=== PATIENT | male | born 1930 | race Caucasian/White ===

== ENCOUNTER 2018-11-13 11:50 | Inpatient (IN) | payer MEDICARE, MEDICAID ==
[~2018-11-13] VITALS: Ht 182.9 cm; Wt 97.2 kg
--- NOTE | ~2018-11-13 | EKG ---
[place], [place] ELECTROCARDIOGRAM REPORT NAME: ROBERTO ABRAMS UNIT #: [id number] ROOM: 419 DOCTOR: MCKENZIE DRAFT REPORT BIRTHDATE: [birth year] [facility] Test Date: 2018-11-13 Test Time: 12:25:43 Pat Name: ROBERTO ABRAMS Department: Room: 419 Gender: M [employer]: : 1930 Requested By: LINCOLN HARGROVE Order Number: [id number] Reading MD: Stevie Chow MD Measurements Intervals [place] Rate: 80 P: AK: QRS: -74 QRSD: 138 T: 31 QT: 423 QTc: 488 Interpretive Statements Atrial fibrillation RBBB and LAFB Compared to ECG 08/25/2018 14:16:26 Left anterior fascicular block now present Sinus rhythm no longer present Electronically Signed On 11-14-2018 4:15:31 PST by Stevie Chow MD CM:EKGRPT:ELECTROCARDIOGRAM REPORT [id number] LINCOLN SANTIZO DRAFT REPORT LINCOLN HARGROVE DO
[~2018-11-13 11:50] MED LIST: BACTRIM DS 8001 TA1 PO; FLOMAX0.4 MG PO; K-TAB20 MEQ PO; LASIX40 MG PO
[2018-11-13 12:00] VITALS: BP 115/67
[2018-11-13 12:59] LABS: HEMATOCRIT 45.1 % (42.0-52.0); HEMOGLOBIN 14.2 g/dl (14.0-18.0); MEAN CELL VOLUME 95.1 fl (80.0-94.0); MEAN CORPUSCULAR HGB CONC 31.5 g/dl (33.0-37.0); MEAN PLATELET VOLUME 8.2 fl (9.6-12.3); PLATELET COUNT AUTOMATED 352 10*3/uL (130-400); RED BLOOD COUNT 4.74 10*6/uL (4.50-5.90); RED CELL DISTRI WIDTH 13.7 % (0-14.5); WHITE BLOOD COUNT 15.6 10*3/uL (4.8-10.8)
[2018-11-13 13:13] LABS: ALBUMIN 3.1 gm/dl (3.1-4.5); ALKALINE PHOSPHATASE 96 U/L (45-117); BUN 20 mg/dl (7-24); CHLORIDE 104 mmol/L (98-107); CREATININE 0.85 mg/dL (0.70-1.30); SGOT/AST 112 IU/L (3-35); SGPT/ALT 42 U/L (12-78); SODIUM 139 mmol/L (136-145); TOTAL PROTEIN 8.9 gm/dL (6.4-8.2)
[2018-11-13 13:25] LABS: BURR CELLS FEW; PLATELET SUFFICIENCY NORMAL (NORMAL); TOTAL CELLS COUNTED 100 #CELLS
[2018-11-13 13:26] LABS: POLYCHROMASIA SLIGHT
[2018-11-13 13:35] VITALS: BP 113/78
[2018-11-13 13:39] LABS: CPK 2084 U/L (39-308); TROPONIN I < 0.015 ng/ml (<0.045)
--- NOTE | 2018-11-13 15:11 | NUR ---
RECEIVED REPORT FROM ROBBY HERNANDEZ
--- NOTE | 2018-11-13 15:27 | NUR ---
physician at bedside.
--- NOTE | 2018-11-13 15:33 | NUR ---
attempted to call filomena byrne to being patient upstairs. no answer.
--- NOTE | 2018-11-13 15:36 | NUR ---
HENRIETTA HERNANDEZ RETURNED CALL. URGENT MATTER UPSTAIRS. WILL TAKE PATIENT UP IN 15 MINUTES.
[2018-11-13 16:00] VITALS: BP 152/74
--- NOTE | 2018-11-13 16:05 | NUR ---
A 88, admitted to , under the services of JAMEEL Barry DO with a diagnosis of RHABDOMYOLYSIS, FREQUENT FALLS. Chief complaint is GENERALZED WEAKNESS, FALLS. Patient arrived via bed from ER. Monitor applied. Initial assessment completed. Vital signs taken and recorded. JAMEEL BARRY DO notified of admission to the unit. Orders received. See assessment for past medical history, medications and allergies. Patient and/or family oriented to unit. Clothing/patient valuable form completed. HENRIETTA VILLA
[2018-11-13 16:37] LABS: BILIRUBIN 1+ (NEGATIVE); BLOOD 2+ (NEGATIVE); CLARITY SL CLOUDY (CLEAR); GLUCOSE NEGATIVE (NEGATIVE); KETONE 3+ (NEGATIVE); LEUKO ESTERASE NEGATIVE (NEGATIVE); NITRITE NEGATIVE (NEGATIVE); SPECIFIC GRAVITY >= 1.030 (1.005-1.030); UROBILINOGEN 0.2 E.U./dl (0.2-1.0)
[2018-11-13 16:39] LABS: COLOR YELLOW (YELLOW)
[2018-11-13 16:54] LABS: BACTERIA 2+; MUCOUS 2+
--- NOTE | 2018-11-13 17:22 | NUR ---
PHYSICAL THERAPY Moderate level complexity eval done at bedside later afternoon. [id number] based on acuity level, weakness, tests, chart review. Please see eval for status, goals, POC. Kiley Huerta, PT
--- NOTE | 2018-11-13 17:23 | NUR ---
PODIATRY AWARE OF CONSULT PRESENT AND IN PATIENTS ROOM.
--- NOTE | 2018-11-13 17:32 | NUR ---
INFORMED OF PATIENT NOT HAVING HOME MEDICATION AND DOESN'T GO TO PCP ARE TO PHARMACY. INFORMED OF EXTENSIVE WOUNDS AND AWAITING ORDERS.
--- NOTE | 2018-11-13 18:45 | NUR ---
DRESSING CHANGES COMLPETED TO RLE PER PODIATRY'S ORDERS. PATIENT TOLERATED PROCEDURE WELL.
--- NOTE | 2018-11-13 19:02 | NUR ---
TERRELL SPRINGER NOTIFIED OF ARTIAL U/S RESULTS.
[2018-11-13 20:00] VITALS: BP 146/73
--- NOTE | 2018-11-13 20:45 | NUR ---
24 HR chart check completed.
--- NOTE | 2018-11-13 22:00 | NUR ---
RESTING IN BED WITH NO ACUTE DISTRESS NOTED. RESPIRATIONS EASY. LUNGS DIMINISHED, CLEAR. PULSE OX 94% RA. +2 BLE EDEMA. DRESSING DRY AND INTACT RLE. BILATERAL TUBI-STONER OUT IN PLACE. IV FLUIDS INFUSING PER ORDER. CALL LIGHT WITHIN REACH. NO VOICED COMPLAINTS. BED ALARM MAINTAINED FOR SAFETY
[2018-11-14] VITALS: BP 143/73
--- NOTE | 2018-11-14 00:14 | NUR ---
PATIENT C/O DIFFICULTY VOIDING. BLADDER DISTENDED. BLADDER SCANNED FOR >[address] TEJADA CONTACTED AND INFORMED, ORDERS RECEIVED TO STRAIGHT CATH
--- NOTE | 2018-11-14 00:30 | NUR ---
STRAIGHT CATH PERFORMED. PATIENT TOLERATED WELL. SOME RESISTANCE MEET WHEN ADVANCING CATH. 1050 CC BLOOD TINGED URINE NOTED. PATIENT VOICED FEELING OF RELIEF ONCE BLADDER EMPTIED.
--- NOTE | 2018-11-14 00:45 | NUR ---
RESTING IN BED. RESPIRATIONS EASY. VSS. IV FLUIDS MAINTAINED. CALL LIGHT WITHIN REACH. NO VFURTHER VOICED COMPLAINTS. BED ALARM MAINTAINED FOR SAFETY
--- NOTE | 2018-11-14 01:00 | NUR ---
PATIENT OVERHEARD LOUDLY CONVERSING WITH SELF. CHECKED ON PATIENT, NO VOICED COMPLAINTS. CALL LIGHT WITHIN REACH
--- NOTE | 2018-11-14 03:30 | NUR ---
WOUND CARE CRYSTAL PRESENT ON FLOOR. INFORMED OF WOUNDS WITH NO ORDERS FOR WOUND CARE. PATIENT CURRENTLY SLEEPING
[2018-11-14 05:30] LABS: MEAN CORPUSCULAR HGB 29.9 pg (27.0-31.0); MEAN CORPUSCULAR HGB CONC 31.4 g/dl (33.0-37.0); MEAN PLATELET VOLUME 8.6 fl (9.6-12.3); PLATELET COUNT AUTOMATED 321 10*3/uL (130-400); RED BLOOD COUNT 4.02 10*6/uL (4.50-5.90); RED CELL DISTRI WIDTH 13.7 % (0-14.5); WHITE BLOOD COUNT 15.2 10*3/uL (4.8-10.8)
[2018-11-14 05:34] LABS: ALBUMIN 2.4 gm/dl (3.1-4.5); ALKALINE PHOSPHATASE 72 U/L (45-117); BUN 19 mg/dl (7-24); CHLORIDE 109 mmol/L (98-107); CREATININE 0.78 mg/dL (0.70-1.30); PHOSPHOROUS 2.3 mg/dL (2.5-4.9); POTASSIUM 3.7 mmol/L (3.5-5.1); SGOT/AST 96 IU/L (3-35); SGPT/ALT 37 U/L (12-78); SODIUM 141 mmol/L (136-145)
[2018-11-14 05:50] LABS: CPK 1271 U/L (39-308); HEMATOCRIT 38.2 % (42.0-52.0)
--- NOTE | 2018-11-14 06:00 | NUR ---
sleeping. respirations easy. iv fluids maintained. call light within reach. bed alarm maintained for safety
[2018-11-14 06:40] LABS: BASOPHILS 1 % (0-1); PLATELET SUFFICIENCY NORMAL (NORMAL); TOTAL CELLS COUNTED 100 #CELLS
--- NOTE | 2018-11-14 06:45 | NUR ---
crystal present on floor to attempt to assess patient and wounds. patient sleeping soundly, unable to arouse. will attempt at later time
[2018-11-14 07:07] LABS: VITAMIN D, 25-HYDROXY 12.3 ng/mL (30-100)
[2018-11-14 08:00] VITALS: BP 124/60; BP 126/74
--- NOTE | 2018-11-14 08:45 | NUR ---
WOUND CARE NURSE IN TO ASSESS, MEASURE, AND STAGE MULTIPLE WOUNDS TO BOTH LEGS AND SACRUM. SEE WOUND CARE CONSULT NOTE AND WOUND ASSESSMENT FLOW SCREENS FOR DETAILS. DRESSINGS TO BE REAPPLIED AFTER PATIENT RETURNS FROM VENOUS ULTASOUND STUDIES THIS MORNING.
--- NOTE | 2018-11-14 08:53 | NUR ---
ROBERTO ABRAMS [id number] Please refer to the physician's history and physical for past medical history, comorbid conditions, and allergies. Diagnosis: RHABDOMYOLYSIS FREQUENT FALLS Tank Score: 15,AT RISK WOUND DESCRIPTIONS: Location of the wound: right anterior proximal lower extremity Thickness: Full Size: 1.8cm x 0.6cm x <0.1cm Tunneling: none Undermining: none Sinus Tract: none Presence of Exudate: none Amount: None Color: Purple, red Odor: None Periwound Skin Appearance: Normal Wound edges: closed Pain (associated with wound): none at time of assessment How does patient state this happened? pt stated he fell on tuesday and was down for several hours Location of the wound: right anterior distal lower extremity Thickness: Full Size: 3.3cm x 1.1cm x <0.1cm Tunneling: none Undermining: none Sinus Tract: none Presence of Exudate: Serosanguineous Amount: Moderate Color: Yellow, red Odor: None Periwound Skin Appearance: Erythema Wound edges: approximated Pain (associated with wound): none at time of assessment How does patient state this happened? pt stated he fell on tuesday and was down for several hours Location of the wound: right posterior distal lower extremity Thickness: Full Size: 5.5cm x 6.7cm x <0.1cm Tunneling: none Undermining: none Sinus Tract: none Presence of Exudate: Serosanguineous Amount: Moderate Color: Yellow, red, brown Odor: None Periwound Skin Appearance: Erythema Wound edges: approximated Pain (associated with wound): none at time of assessment How does patient state this happened? pt stated he fell on tuesday and was down for several hours Location of the wound: right great toe Type: Laceration Size: 3.0cm x 3.5cm x <0.1cm Tunneling: none Undermining: none Sinus Tract: none Presence of Exudate: Serosanguineous Amount: Moderate Color: red, purple Odor: None Periwound Skin Appearance: Erythema, warmth Wound edges: approximated with 4 sutures Pain (associated with wound): none at time of assessment How does patient state this happened? pt stated he fell on tuesday and was down for several hours Location of the wound: left knee lateral Thickness: Full Size: 2.7cm x 2.2cm x <0.1cm Tunneling: none Undermining: none Sinus Tract: none Presence of Exudate: none Amount: none Color: red, yellow Odor: None Periwound Skin Appearance: Erythema Wound edges: approximated Pain (associated with wound): none at time of assessment How does patient state this happened? pt stated he fell on tuesday and was down for several hours Location of the wound: left knee medial Thickness: Full Size: 0.7cm x 1.2cm x <0.1cm Tunneling: none Undermining: none Sinus Tract: none Presence of Exudate: none Amount: none Color: red, yellow Odor: None Periwound Skin Appearance: Erythema Wound edges: approximated Pain (associated with wound): none at time of assessment How does patient state this happened? pt stated he fell on tuesday and was down for several hours Location of the wound: left lateral lower extremity proximal Thickness: Full Size: 0.4cm x 0.3cm x <0.1cm Tunneling: none Undermining: none Sinus Tract: none Presence of Exudate: none Amount: none Color: red, yellow, brown Odor: None Periwound Skin Appearance: Erythema Wound edges: approximated Pain (associated with wound): none at time of assessment How does patient state this happened? pt stated he fell on tuesday and was down for several hours Location of the wound: left lateral lower extremity medial Thickness: Full Size: 1.7cm x 1.2cm x <0.1cm Tunneling: none Undermining: none Sinus Tract: none Presence of Exudate: none Amount: none Color: red, yellow, brown Odor: None Periwound Skin Appearance: Erythema Wound edges: approximated Pain (associated with wound): none at time of assessment How does patient state this happened? pt stated he fell on tuesday and was down for several hours Location of the wound: left lateral lower extremity distal Thickness: Full Size: 1.4cm x 0.7cm x <0.1cm Tunneling: none Undermining: none Sinus Tract: none Presence of Exudate: none Amount: none Color: red, yellow, brown Odor: None Periwound Skin Appearance: Erythema Wound edges: approximated Pain (associated with wound): none at time of assessment How does patient state this happened? pt stated he fell on tuesday and was down for several hours Location of the wound: sacrum Type of wound: stage 3 Thickness: Full Size: 2.5cm x 2.3cm x <0.1cm Tunneling: none Undermining: none Sinus Tract: none Presence of Exudate: Serosanguineous Amount: Light Color: Yellow, brown, red Odor: None Periwound Skin Appearance: Erythema Wound edges: approximated Pain (associated with wound): tender to touch How does patient state this happened? pt stated he has been treating this at home for sometime and its getting better Patients bilateral extremities are dry and flaky. Pedal pulse are palpalable. Bilateral lower extremities are warm to touch. Surface the patient is resting on: Isoflex SKIN PREVENTION RECOMMENDATION: 1. Pressure redistribution support surface as appropriate 2. Elevate heels 3. Remove boots/TEDS every shift and reapply 4. Head of bed 30 degrees as tolerated 5. Assess nutrition and hydration 6. Manage moisture 7. Avoid the use of containment devices while in bed 8. Use absorptive products on surfaces limit layers of linens on bed 9. Turn and reposition every 1-2 hours in bed and every 1 hour in chair as tolerated 10. Weight shifts every 15 minutes while up in chair 11. Offloading with pillows or device to keep heels elevated off bed 12. Monitor skin at least every shift 13. Inspect under medical devices twice a day WOUND TREATMENT RECOMMENDATIONS: Wheelchair cushion when oob. Heel raiser pro boots while in bed. Stage 3 guidelines: Cleanse sacrum with nss and apply sureprep around the wound therahoney to wound bed and cover with optifoam gentle. Venous and arterial studies. Consult podiatry for possible debridement of bilateral lower extremities if studies suggest and toenail care. Consult Karen Hubbard [facility] for possible debridement of sacrum. Full thickness guidelines: Cleanse left lateral lower extremity distal, left lateral lower extremity medial, left lateral lower extremity proximal, right posterior distal lower extremity, right anterior distal lower extremity with nss and apply sureprep around the wound therahoney to wound bed and cover with 4x4 and wrap with kerlix daily and prn for soiling. Full thickness guidelines: Cleanse left knee medial and left knee lateral with nss and apply sureprep around the wound therahoney to wound bed and cover with optifoam gentle. Continue bactroban dressing to right great toe per podiatry. Continue aquaphor to BLE per podiatry.
--- NOTE | 2018-11-14 09:59 | NUR ---
Dr. Le notified of wound care recommendations.
--- NOTE | 2018-11-14 10:45 | NUR ---
PATIENT BLADDER PER ORDERS FOR QSHIFT. AMOUNT SHOWN 413CC IN BLADDER. ASSISTED PATIENT BY STANDING UP AND THE USE OF URINAL, PATIENT UNABLE TO PRODUCE URIN. PATIENT ASSISTED BACK INTO BED AND STRAIGHT CATH PER ORDERS, 400CC OBTAINED. URINE IS DARK FRANKIE, HEMATURIA, AND STRONGER ODOR.
--- NOTE | 2018-11-14 11:26 | NUR ---
Assistant Professor Of Dietetics in to talk to patient. Patient states lives at home with alone. There are few steps in the home. Physician: none Pharmacy: mail Home health services: none Patient's level of ADLs: MINIMAL ASSIST Patient has working utilities: all working DME: none Follow-up physician's appointment after d/c: will be made by hospitalist nurse director upon discharge Does patient want to access PORTAL?: no Discharge plan discussed with patient, patient lives at home a lone, he states he was doing fine ambulating until his last fall. discussed with him a short term [facility] for rehab prior to going back home, patient was agreeable with this, discussed with him local facilities and he asked that someone call his sister to choose the facility. buffing machine tender will contact patient's sister regarding choice of facilities. case management will follow. ALEJANDRINA VALENTINE
[2018-11-14 12:00] VITALS: BP 118/61
--- NOTE | 2018-11-14 12:43 | NUR ---
Attempted to call patients sister to discuss snf placement and which facility they would prefer. Karrie is at work until 6 PM, her huband stated he will have her call me back either this afternoon or in the morning. Will follow
--- NOTE | 2018-11-14 12:57 | NUR ---
PODIATRY IN TO SEE PATIENT AND EXPRESSED BLOODY DRAINAGE FROM HEMATOMA TO RIGHT GREAT TOE, SMALL AMOUNT OF BLOODY DRAINAGE TO DRESSING NOTED.
--- NOTE | 2018-11-14 13:00 | NUR ---
PATIENT HAVING SCANT BLOODY URINE WHEN ATTEMPTING TO VOID. BLADDER SCANNED FOR >508 ML, PATIENT ASSISTED UP TO RR W/WALKER TO ATTEMPT TO VOID AND ALSO HAVING BOWEL MOVEMENT. WILL STRAIGHT CATHETERIZE ORDERED IF NO OR INADEQUATE RESULT WITH URINATION.
--- NOTE | 2018-11-14 13:30 | NUR ---
PATIENT UNABLE TO VOID, WILL STRAIGHT CATH ORDERED (Q SHIFT)
--- NOTE | 2018-11-14 13:51 | NUR ---
PATIENT STRAIGHT CATHETERIZED FOR 500ML COFFEE-COLORED URINE.
--- NOTE | 2018-11-14 15:17 | NUR ---
PHYSICAL THERAPY Patient declines therapy this afternoon due to being tired and just being up out of bed to the restroom shortly ago. Will check back in the AM. No therapy provided for this reason. MADIE THOMPSON CONTACT CENTER MANAGER
[2018-11-14 16:00] VITALS: BP 123/65
--- NOTE | 2018-11-14 19:15 | NUR ---
BEDSIDE REPORT OBTAINED FROM SUNITHA. PATIENT RESTING IN BED, EYES CLOSED. NO S&S OF DISTRESS NOTED, RESP ARE ERND ON ROOM AIR. BED IS LOCKED IN LOWEST POSITION, BED ALARM MAINTAINED. CALL LIGHT LEFT WITHIN REACH.
[2018-11-14 20:00] VITALS: BP 128/92
--- NOTE | 2018-11-14 22:00 | NUR ---
PATIENT SLEEPING. CALL LIGHT LEFT WITHIN REACH.
--- NOTE | 2018-11-14 22:45 | NUR ---
BLADDER SCAN PERFORMED PER ORDERS, AMOUNT SHOWN 413CC OF URINE. PATIENT ASSISTED TO STAND UP AND TRY TO URINATED IN URINAL BUT WAS UNABLE TO PRODUCE URINE AFTER MULITPLE ATTEMPTS. PATIENT ASSISTED BACK INTO BED. PATIENT STRAIGHT CATH PER ORDER, 400CC OF URINE OBTAINED. URINE WAS DARK FRANKIE/HEMATURIA AND STRONG ODOR. PATIENT STATED HE FELT MUCH BETTER NOW. BED ALARM MAINTAINED AND CALL LIGHT LEFT WITHIN REACH.
[2018-11-15] VITALS: BP 127/65
--- NOTE | 2018-11-15 04:00 | NUR ---
SLEEPING. CALL LIGHT LEFT WITHIN REACH.
--- NOTE | 2018-11-15 04:29 | NUR ---
24 HR chart check completed.
[2018-11-15 05:40] LABS: BUN 15 mg/dl (7-24); CHLORIDE 111 mmol/L (98-107); CREATININE 0.71 mg/dL (0.70-1.30); POTASSIUM 3.6 mmol/L (3.5-5.1); SODIUM 143 mmol/L (136-145)
[2018-11-15 05:44] LABS: PHOSPHOROUS 2.3 mg/dL (2.5-4.9)
[2018-11-15 05:59] LABS: CPK 423 U/L (39-308)
[2018-11-15 06:00] LABS: HEMATOCRIT 36.5 % (42.0-52.0); HEMOGLOBIN 11.2 g/dl (14.0-18.0); MEAN CELL VOLUME 95.5 fl (80.0-94.0); MEAN CORPUSCULAR HGB 29.3 pg (27.0-31.0); MEAN CORPUSCULAR HGB CONC 30.7 g/dl (33.0-37.0); MEAN PLATELET VOLUME 8.7 fl (9.6-12.3); PLATELET COUNT AUTOMATED 313 10*3/uL (130-400); RED BLOOD COUNT 3.82 10*6/uL (4.50-5.90); WHITE BLOOD COUNT 12.4 10*3/uL (4.8-10.8)
[2018-11-15 06:32] LABS: BURR CELLS FEW; PLATELET SUFFICIENCY NORMAL (NORMAL); TOTAL CELLS COUNTED 100 #CELLS
[2018-11-15 06:49] LABS: ACT PARTIAL THROMBO TIME 30.7 SECONDS (20.8-31.5); INTERNATIONAL NORM RATIO 1.2 (2.0-3.5)
[2018-11-15 07:30] VITALS: BP 140/82
[2018-11-15 08:00] VITALS: BP 125/71
--- NOTE | 2018-11-15 11:00 | NUR ---
ATTEMPTED TO VOID IN BEDSIDE COMMODE PRIOR TO PHYSICAL THERAPY. ATTEMPTED A SECOND TIME ON BEDSIDE COMMODE AND WAS NOT SUCCESSFULL. PLACED BACK TO BED AND BLADDER SCANNED FOR >600CC. DR. CONROY NOTIFIED AND WILL CALL BACK.
--- NOTE | 2018-11-15 11:15 | NUR ---
Patients sister returned call and asked for his referral to be sent to [facility]. Contacted facility and faxed referral. Patient will require a 3 night stay;
--- NOTE | 2018-11-15 11:15 | NUR ---
PHYSICAL THERAPY Patient presented to therapy sitting on bedside commode with complaint of not being able to use the restroom. Patient agrees to therapy session. Patient was identified by name and . Patient performed STS from the bedside commode with MOD A X 1. Patient stood at bedside for 3 minutes while PCT RADHA cleaned him up. Patient stood for 3 minutes with CGA X 1. Patient ambulated 15' x 1 to bedside chair on other side of room with MIN A X 1 to CGA X 1 with W/W. Patient transferred to bedside chair with MIN A X 1 with verbal cues for putting hands back on armrests of chair. Patient performed seated bilateral LE ther ex 2 x 10 reps each LE in all planes of movement for strengthening in order to improve pateint's functional mobility. Patient transferred STS with MOD A X 1 with verbal cues for pushing of armrests of chair. Patient transferred to bedside commode with MIN A X 1. Patient then transferred off of commode with MOD A X 1. Patient ambulated 5' x 1 to EOB with CGA X 1 and then transferred to supine in bed with MOD A X 2. Patient was left in supine in bed with MARY COLLINS, who was about to perform a bladder scan on the patient. Patient was 1:1 with this GATE AGENT for 25 minutes total. Patient is recommended for SNF upon discharge. MADIE THOMPSON GATE AGENT
[2018-11-15 12:00] VITALS: BP 140/73
--- NOTE | 2018-11-15 12:32 | NUR ---
STARTED PO FLOMAX, PATIENT STRAIGHT CATHETERIZED FOR 600ML COLA-COLORED URINE WITH BLOODY CLOTS.
[2018-11-15 16:00] VITALS: BP 131/63
[2018-11-15 20:00] VITALS: BP 131/86
[2018-11-16] VITALS: BP 155/83
--- NOTE | 2018-11-16 01:09 | NUR ---
BLADDER SCAN >716. STRAIGHT CATH FOR 800 HEMATURIA, DARK COLORED, FOUL SMELLING URINE.
--- NOTE | 2018-11-16 04:14 | NUR ---
Recommend follow up for wound care in outpatient setting patient being discharge to another facility at this time.
[2018-11-16 06:30] LABS: BASO # 0.1 10*3/uL (0.0-0.1); BASO % 0.9 % (0.0-1.0); EOS # 0.8 10*3/uL (0.0-0.4); EOS % 7.6 % (1.0-4.0); HEMATOCRIT 37.4 % (42.0-52.0); HEMOGLOBIN 11.5 g/dl (14.0-18.0); LYMPH # 2.2 10*3/uL (1.3-4.4); LYMPH % 20.9 % (27.0-41.0); MEAN CELL VOLUME 95.2 fl (80.0-94.0); MEAN CORPUSCULAR HGB 29.3 pg (27.0-31.0); MEAN CORPUSCULAR HGB CONC 30.7 g/dl (33.0-37.0); MEAN PLATELET VOLUME 8.8 fl (9.6-12.3); MONO # 1.5 10*3/uL (0.1-1.0); MONO % 14.1 % (3.0-9.0); NEUT # 5.8 10*3/uL (2.3-7.9); NEUT % 55.8 % (47.0-73.0); PLATELET COUNT AUTOMATED 342 10*3/uL (130-400); RED BLOOD COUNT 3.93 10*6/uL (4.50-5.90); RED CELL DISTRI WIDTH 13.9 % (0-14.5); WHITE BLOOD COUNT 10.5 10*3/uL (4.8-10.8)
[2018-11-16 06:53] LABS: BUN 14 mg/dl (7-24); CHLORIDE 108 mmol/L (98-107); CREATININE 0.67 mg/dL (0.70-1.30); POTASSIUM 3.3 mmol/L (3.5-5.1); SODIUM 143 mmol/L (136-145)
[2018-11-16 06:55] LABS: CPK 205 U/L (39-308)
--- NOTE | 2018-11-16 07:31 | NUR ---
Patient referred to [facility], 3 night stay complete, patient can go when medically stable for discharge.
[2018-11-16 08:00] VITALS: BP 144/72
[2018-11-16 12:00] VITALS: BP 142/70
[2018-11-16] MEDS ORDERED: KEFLEX 500 MG E2 CAP PO (12:05)
[2018-11-16] MEDS ORDERED: XARE20MG PO (12:05)
[2018-11-16] MEDS ORDERED: FLOMAX0.4 MG PO (12:05)
[2018-11-16] MEDS ORDERED: XARE15TA PO (12:05)
[2018-11-16] MEDS ORDERED: VITAMIN D32000 UNI1 PO (12:05)
--- NOTE | 2018-11-16 13:37 | NUR ---
Patient is discharged to [facility], transportation scheduled for 3 PM with [place]. NH, fish and wildlife warden, sister Karrie notified.
--- NOTE | 2018-11-16 15:20 | NUR ---
PATIENT REFUSING DISCHARGE WOUND PICTURES. LEG DRESSING WERE COMPLETED IN THE AM WITH PODIATRY AND ARE TO BE CHANGED EVERY OTHER DAY AND DIDN'T WANT THEM REMOVED.
--- NOTE | 2018-11-16 15:27 | NUR ---
Discharge instructions reviewed with patient/family. Patient receptive and verbalizes understanding. Follow-up care arranged WITH PCP IN 1-2 WEEKS, WRITTEN INSTRUCTION SENT IN ENVELOPE WITH [facility]. [id number] REPORT GIVEN TO NURSE AT [facility]. PATIENT TAKEN OFF THE FLOOR VIA STRETCHER BY [facility]. DISCHARGE SUMMARY, BELONGING CHECKLIST REVIEWED AND COMPLETED. IV SITE REMOVED, PULPWOOD BUYER REMOVED. LONDON CRUMP
--- NOTE | 2018-11-20 07:59 | NUR ---
PHYSICAL THERAPY CO-SIGN I approve of the Phyical Therapy notes written above. VERNON MORRISON PT
[2019-03-05] MEDS ORDERED: FEVER REDUCER650 MG R (14:26)
[2019-03-05] MEDS ORDERED: BISCOLAX10 M1 R (14:26)
[2019-03-05] MEDS ORDERED: Haldol Concen2 MG/ML PO (14:26)
[2019-03-05] MEDS ORDERED: MORPHINE S100 MG/5 M SL (14:26)
[2019-03-05] MEDS ORDERED: LORAZEPAM0.5 MG PO (14:26)
[2019-03-05] MEDS ORDERED: ATROPINE SULFATE2 M2 SL (14:26)
== END 2018-11-16 15:27 | disposition other institution (70) | DRG 565 ==
LOC: ED 11:50 → 4E 14:26 → EDHOLD 14:26 → 4E 14:54
PROVIDERS: Emergency Medicine; Internal Medicine; ADMIT Internal Medicine
DX: T79.6XXA Traumatic ischemia of muscle, initial encounter (principal); E44.0 Moderate protein-calorie malnutrition; R65.10 Systemic inflammatory response syndrome (SIRS) of non-infectious origin without acute organ dysfunction; I82.412 Acute embolism and thrombosis of left femoral vein; I82.511 Chronic embolism and thrombosis of right femoral vein; I82.531 Chronic embolism and thrombosis of right popliteal vein; I82.442 Acute embolism and thrombosis of left tibial vein; R29.6 Repeated falls; R74.0 Nonspecific elevation of levels of transaminase and lactic acid dehydrogenase [LDH]; H05.242 Constant exophthalmos, left eye; R74.8 Abnormal levels of other serum enzymes; D75.89 Other specified diseases of blood and blood-forming organs; D72.829 Elevated white blood cell count, unspecified; W18.30XA Fall on same level, unspecified, initial encounter; N40.0 Benign prostatic hyperplasia without lower urinary tract symptoms; L03.031 Cellulitis of right toe; Z66 Do not resuscitate; Z51.5 Encounter for palliative care; R33.9 Retention of urine, unspecified; I73.9 Peripheral vascular disease, unspecified; S91.111A Laceration without foreign body of right great toe without damage to nail, initial encounter; I87.2 Venous insufficiency (chronic) (peripheral); R82.4 Acetonuria; R31.21 Asymptomatic microscopic hematuria; R82.71 Bacteriuria; R82.2 Biliuria; L89.152 Pressure ulcer of sacral region, stage 2; E87.8 Other disorders of electrolyte and fluid balance, not elsewhere classified; E83.39 Other disorders of phosphorus metabolism; Y93.89 Activity, other specified; Y92.098 Other place in other non-institutional residence as the place of occurrence of the external cause; Y99.8 Other external cause status; Z80.0 Family history of malignant neoplasm of digestive organs; Z83.49 Family history of other endocrine, nutritional and metabolic diseases; Z68.29 Body mass index [BMI] 29.0-29.9, adult

== ENCOUNTER 2019-02-24 22:29 | Inpatient (IN) | payer MEDICARE, MEDICAID ==
[~2019-02-24] VITALS: Ht 182.9 cm; Wt 79.9 kg
--- NOTE | ~2019-02-24 | CON ---
[place], [place] REPORT OF CONSULTATION NAME: ROBERTO ABRAMS UNIT #: [id number] [facility] DOCTOR: TANK JOHNSON MD BIRTHDATE: [birth year] DOS: 02/25/2019 REASON FOR CONSULTATION: Sepsis. CHIEF COMPLAINT: Altered mental status. HISTORY OF PRESENT ILLNESS: This is an 88-year-old male who was brought to the ER from senior care facility because of acute mental status changes. He had acute urinary retention. A Tinajero catheter was placed on admission and urinalysis was obtained that shows too numerous to count wbc's. Urine cultures are currently in process. His blood cultures from admission 01/25 bottles are growing gram-negative bacilli. His recent urine cultures from 02/06/2019 showed growth of Proteus mirabilis, which was sensitive to Zosyn, resistant to cefazolin. His recent abdomen and pelvis CT is from 12/11/2018 this year, which shows enlarged prostate and 3 mm nonobstructing renal stone on the left lower pole unclear whether he was treated for his UTI in November. There is no documentation for the same. Currently, the patient is minimally responsive and is moaning in pain. PAST MEDICAL HISTORY: Significant for benign prostatic hyperplasia, chronic venous stasis of bilateral lower extremity, decubitus ulcer stage II, history of DVT and falls. PAST SURGICAL HISTORY: History of cyst removal from the back of his head, right side neck cyst, right inguinal hernia repair. SOCIAL HISTORY: Nonsmoker, nonalcoholic. No illicit drug use. FAMILY HISTORY: Father at the age of 50 because of stomach cancer. Mother had history of goiter. ALLERGIES: No known drug allergies. MEDICATIONS: Prior to the hospitalization reviewed. REVIEW OF SYSTEMS: A 12-point review of systems has been done and pertinent negatives and positives included in HPI, rest are noncontributory. PHYSICAL EXAMINATION: VITAL SIGNS: Blood pressure 93/51, currently on 10 mcg of Levophed. Temperature 99.8, pulse rate 94, respiratory rate 25, oxygen saturation 98% on 4 liters of oxygen. GENERAL: The patient is alert and awake, but not completely oriented and he is in mild to moderate distress and moaning in pain. HEENT: Atraumatic, normocephalic. PERRLA, EOMI. RESPIRATORY: Air entry is bilaterally equal. No wheezes or crackles. CARDIOVASCULAR: S1, S2 normal. Tachycardic. RESPIRATORY: Air entry bilaterally equal. No wheeze or crackles. ABDOMEN: Soft, tender diffusely. No rigidity; however, there is guarding. EXTREMITIES: No edema. [place], [place] REPORT OF CONSULTATION NAME: ROBERTO ABRAMS UNIT #: [id number] ROOM: [facility] DOCTOR: TANK JOHNSON MD BIRTHDATE: [birth year] SKIN: There is a grade 2 ulcer on his back with minimal redness, no tenderness, no discharge, no foul smell. LABORATORY DATA AND IMAGING: Reviewed, mentioned in HPI. ASSESSMENT: 1. Gram-negative bacteremia, likely urinary in origin. 2. Acute urinary retention. 3. Benign prostatic hyperplasia with frequent urinary tract infections in the past. 4. Complicated urinary tract infection in a male. PLAN: 1. At this time, continue with Zosyn. He had a recent Proteus mirabilis in the urine, which was sensitive to Zosyn and other cephalosporins except cefazolin. We will continue with Zosyn for now. Discontinue vancomycin and Levaquin. He is needing a 10 mcg of Levophed through a peripheral line, would recommend a central line or use another pressor. 2. Repeat blood cultures 1 set. 3. When his renal function is stable, recommend CT abdomen and pelvis with contrast to rule out any intra-abdominal abscess/pelvic abscess. 4. With his recurrent UTIs, would recommend chronic Tinajero for him. He is already on Flomax, so recommend follow up with Urology outpatient. Thank you for your consult. Please call for any questions. Tank Johnson MD CM:CONSTR:REPORT OF CONSULTATION 1631 02/25/19 [id number] interface
--- NOTE | ~2019-02-24 | PR ---
[place], [place] PROGRESS NOTE NAME: ROBERTO ABRAMS UNIT #: [id number] [facility] DOCTOR: RODNEY FERGUSON MD BIRTHDATE: [birth year] DOS: SUBJECTIVE: The patient has been admitted to hospital with severe sepsis and the hypotension, on Levophed drip. He is feeling very drowsy. He is not able to talk much and feeling very weak and progressively going downhill. His comprehensive metabolic profile is fairly normal. CBC showed hemoglobin 11.2, hematocrit 35.3, WBC 34. Urine creatinine 48.90 and the urine random is 58. Urine potassium random is 34.8 and urine random chloride is 97. He is on DNR and the patient will be placed on comfort measures. CBC today shows white count 22,100, hemoglobin 11.1, hematocrit 35.3, says Hg is improving, 92% neutrophils, 1% lymphocyte, 20% neutrophils. Urine culture grew heavy growth of gram-negative bacteria, which is sensitive to ampicillin and will maintain most of the other antibiotic. Blood culture showed Proteus mirabilis, gram-negative bacilli, which is also sensitive to most of the bacteria and the repeat blood cultures show gram-negative bacilli. OBJECTIVE: VITAL SIGNS: Blood pressure of 93/50, pulse 57, respiratory rate is 18, temperature is 96.1, and the patient is on hyperalimentation and also on Levophed. HEART: Regular. CHEST: Having some basal crepitation. ABDOMEN: Soft. RDONEY FERGUSON MD CM:PNTRANS [id number] RODNEY FERGUSON MD [id number] interface
--- NOTE | ~2019-02-24 | EKG ---
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
[~2019-02-24 22:29] MED LIST changes: +KEFLEX 500 MG E2 CAP PO; +VITAMIN D32000 UNI1 PO; +XARE15TA PO; +XARE20MG PO
[2019-02-24 23:09] LABS: HEMATOCRIT 35.7 % (42.0-52.0); HEMOGLOBIN 11.6 g/dl (14.0-18.0); MEAN CELL VOLUME 88.8 fl (80.0-94.0); MEAN CORPUSCULAR HGB 28.9 pg (27.0-31.0); MEAN CORPUSCULAR HGB CONC 32.5 g/dl (33.0-37.0); MEAN PLATELET VOLUME 8.7 fl (9.6-12.3); PLATELET COUNT AUTOMATED 256 10*3/uL (130-400); RED BLOOD COUNT 4.02 10*6/uL (4.50-5.90); RED CELL DISTRI WIDTH 15.6 % (0-14.5)
[2019-02-24 23:19] LABS: ACT PARTIAL THROMBO TIME 26.8 SECONDS (20.8-31.5); INTERNATIONAL NORM RATIO 1.3 (2.0-3.5)
[2019-02-24 23:24] LABS: ALBUMIN 1.9 gm/dl (3.1-4.5); CREATININE 1.55 mg/dL (0.70-1.30); POTASSIUM 3.9 mmol/L (3.5-5.1); TOTAL PROTEIN 6.8 gm/dL (6.4-8.2); TROPONIN I 0.025 ng/ml (<0.045)
[2019-02-24 23:30] LABS: BASOPHILS 1 % (0-1); PLATELET SUFFICIENCY NORMAL (NORMAL); TOTAL CELLS COUNTED 100 #CELLS
--- NOTE | 2019-02-24 23:52 | NUR ---
SECOND BAG IV FLUIDS INFUSING, PT IS AWAKE AND TALKING, AOX3. TEMP 99.8. URINE SENT, WILL CONTINUE TO MONITOR.
[2019-02-24 23:57] VITALS: BP 87/46
[2019-02-24 23:57] LABS: BILIRUBIN NEGATIVE (NEGATIVE); BLOOD 3+ (NEGATIVE); CLARITY CLOUDY (CLEAR); COLOR YELLOW (YELLOW); GLUCOSE NEGATIVE (NEGATIVE); KETONE NEGATIVE (NEGATIVE); LEUKO ESTERASE 2+ (NEGATIVE); NITRITE POSITIVE (NEGATIVE); PH 8.5 (5.0-9.0)
[2019-02-25] VITALS (89 sets, daily range): BP systolic 79–138; BP diastolic 39–98
[2019-02-25 00:23] LABS: BACTERIA 2+; WBC TNTC wbc/hpf (0-5)
--- NOTE | 2019-02-25 01:20 | NUR ---
PT IV FLUIDS COMPLETE, MANUAL BP 80/40, DR SANDS NOTIFIED, LEVOPHED ORDERED.
--- NOTE | 2019-02-25 02:10 | NUR ---
BP 80/42, LEVO TITRATED 12 MICS.
--- NOTE | 2019-02-25 02:25 | NUR ---
A 88, admitted to ICCU, under the services of LEONID Mcelroy MD with a diagnosis of UTI/SEPSIS. Chief complaint is weakness, confusion, elevated temperature. Patient arrived via stretcher from ER. Monitor applied. Initial assessment completed. Vital signs taken and recorded. LEONID MCELROY MD notified of admission to the unit. Orders received. See assessment for past medical history, medications and allergies. Patient and/or family oriented to unit. [facility] ICCU visitation policy reviewed. Clothing/patient valuable form completed. MICHAEL DAVIS
[2019-02-25] MEDS ORDERED: DULCOLAX10 M1 R (02:54)
[2019-02-25] MEDS ORDERED: MILK OF MA400 MG/51 PO (02:54)
[2019-02-25] MEDS ORDERED: FLEET ENEMA 13133 ML R (02:55)
[2019-02-25] MEDS ORDERED: NON-ASPIRIN325 MG PO (02:57)
--- NOTE | 2019-02-25 03:19 | NUR ---
PT SLEEPING. BP 80/40 (50) LEVOPHED TITRATED TO 18MICS/MIN. #4 BAG IVF INFUSING AT 100CC/HR. IV SITE RAN REMAINS ASYMPTOMATIC.
--- NOTE | 2019-02-25 04:22 | NUR ---
LEVOPHED TITRATED DOWN TO 17 MICS/MIN.
--- NOTE | 2019-02-25 04:35 | NUR ---
LEVOPHED DOWN TO 16 MICS/MIN.
--- NOTE | 2019-02-25 05:04 | NUR ---
PT RETURNS TO SLEEP AFTER BLOOD DRAW. HR REMAINS COOPERATIVE AND PLEASANT. LEVOPHED TITRATED DOWN TO 15 MICS/MIN. IV SITE ASYMPTOMATIC.
[2019-02-25 05:29] LABS: ALBUMIN 1.8 gm/dl (3.1-4.5); CREATININE 1.68 mg/dL (0.70-1.30); FREE T4 1.26 ng/dl (0.76-1.46); PHOSPHOROUS 1.7 mg/dL (2.5-4.9); POTASSIUM 3.7 mmol/L (3.5-5.1); TOTAL PROTEIN 6.7 gm/dL (6.4-8.2)
[2019-02-25 05:34] LABS: THYROID STIM HORMONE (HS) 1.44 uIU/ml (0.358-4.75)
[2019-02-25 06:06] LABS: ACT PARTIAL THROMBO TIME 27.9 SECONDS (20.8-31.5); INTERNATIONAL NORM RATIO 1.3 (2.0-3.5)
[2019-02-25 06:10] LABS: HEMATOCRIT 38.6 % (42.0-52.0); HEMOGLOBIN 12.1 g/dl (14.0-18.0); MEAN CELL VOLUME 91.3 fl (80.0-94.0); MEAN CORPUSCULAR HGB 28.6 pg (27.0-31.0); MEAN CORPUSCULAR HGB CONC 31.3 g/dl (33.0-37.0); MEAN PLATELET VOLUME 9.4 fl (9.6-12.3); PLATELET COUNT AUTOMATED 261 10*3/uL (130-400); RED BLOOD COUNT 4.23 10*6/uL (4.50-5.90); RED CELL DISTRI WIDTH 15.9 % (0-14.5); WHITE BLOOD COUNT 30.6 10*3/uL (4.8-10.8)
[2019-02-25 06:31] LABS: BURR CELLS MODERATE; PLATELET SUFFICIENCY NORMAL (NORMAL); POLYCHROMASIA SLIGHT; TOTAL CELLS COUNTED 100 #CELLS; VACUOLATION OF NEUTROPHILS SLIGHT
--- NOTE | 2019-02-25 06:34 | NUR ---
LEVOPHED HAS BEEN TITRATED DOWN TO 10MCG/MIN. MAP REMAINS >65.... CURRENTLY 90/56(67).
[2019-02-25 06:42] LABS: VITAMIN D, 25-HYDROXY 36.9 ng/mL (30-100)
--- NOTE | 2019-02-25 07:45 | NUR ---
DR. CASSIDY CALLED IN AND UPDATED ON PATIENT'S CONDITION. NEW ORDERS RECEIVED
--- NOTE | 2019-02-25 08:00 | NUR ---
ALERT TO PERSON AND PLACE. DROWSY. DR. BLANK HERE TO SEE PATIENT ON CONSULT FOR MULTI-LUMEN CATHETER PLACEMENT. PATIENT AT THIS TIME IS REFUSING TO HAVE LINE PLACED. REMAINS ON LEVOPHED GTT AT 10 MAITE'S (75CC/HR) AND NS AT 100CC/HR LUNGS CLEAR BILATERALLY. 1+ EDEMA NOTED TO BILATERAL LOWER LEGS. MEHREEN SEQUEIRA ON. BLADDER SCANNED FOR 350CC URINE.
--- NOTE | 2019-02-25 10:50 | NUR ---
INCONTINENT OF LARGE AMOUNT URINE. CHILLING, TEMP 99.8. COMPLAINS OF "PAIN DOWN THERE." NOT ABLE TO IDENTIFY WHERE. #18 ALBANIAN SILVESTRE PLACED FOR RETURN OF 400CC YELLOW URINE
--- NOTE | 2019-02-25 10:53 | NUR ---
DR. OROPEZA NOTIFIED OF CONSULT, LABS, MED'S, AND CXR REVIEWED
--- NOTE | 2019-02-25 23:10 | NUR ---
MEDICTED WITH TYLENOL PER PRN ORDER FOR T 102.7.
[2019-02-26] VITALS (80 sets, daily range): BP systolic 85–146; BP diastolic 43–70
--- NOTE | 2019-02-26 00:25 | NUR ---
TYLENOL INEFFECTIVE. T 103.2 (R). DR CASSIDY NOTIFIED AND ORDER FOR MOTRIN 800MG PO X1 NOW AND REPEAT IN 4 HOURS. ALSO ORDER FOR COOLING BLANKET.
[2019-02-26 05:23] LABS: CHLORIDE 108 mmol/L (98-107); CREATININE 1.33 mg/dL (0.70-1.30); POTASSIUM 3.5 mmol/L (3.5-5.1); SODIUM 139 mmol/L (136-145)
[2019-02-26 05:26] LABS: BUN 24 mg/dl (7-24)
[2019-02-26 06:12] LABS: HEMATOCRIT 35.3 % (42.0-52.0); HEMOGLOBIN 11.2 g/dl (14.0-18.0); MEAN CELL VOLUME 91.5 fl (80.0-94.0); MEAN CORPUSCULAR HGB CONC 31.7 g/dl (33.0-37.0); MEAN PLATELET VOLUME 9.7 fl (9.6-12.3); PLATELET COUNT AUTOMATED 210 10*3/uL (130-400); RED BLOOD COUNT 3.86 10*6/uL (4.50-5.90)
[2019-02-26 07:41] LABS: BURR CELLS MODERATE; PLATELET SUFFICIENCY NORMAL (NORMAL); TOTAL CELLS COUNTED 100 #CELLS; TOXIC GRANULATION SLIGHT
--- NOTE | 2019-02-26 09:00 | NUR ---
ALERT AND ORIENTED, MOANING WITH ALL CARE, TURNING, REFUSES TO EAT ANY FOOD, TAKING SIPS OF WATER, IV SITES X 4 ASYMPT, SILVESTRE PATENT, TOTAL CARE PT, LEVAPHED TITTRATED TO 5 MCG, WOUND CARE HAS BEEN HERE TO SEE PT
--- NOTE | 2019-02-26 09:00 | NUR ---
Naprapath in to see patient. He is very drowsy. On cooling blanket. He is a LTC resident at [facility]. community planner following.
--- NOTE | 2019-02-26 09:59 | NUR ---
ROBERTO ABRAMS [id number] Please refer to the physician's history and physical for past medical history, comorbid conditions, and allergies. Diagnosis: UTI SEPTIC SHOCK Tank Score: 19,LOW OR NO RISK WOUND DESCRIPTIONS: Wound Number: 1 Location of the wound: coccyx Type of wound: stage 2 Thickness: Partial Size: 1.7cm x 1.5cm x 0.1cm Tunneling: none Undermining: none Sinus Tract: none Presence of Exudate: Serous Amount: Light Color: Red Odor: None Periwound Skin Appearance: Normal Wound edges: approximated Pain (associated with wound): none at time of assessment How does patient state this happened? pt unsure how this happened Wound Number: 2 Location of the wound: Right great toe Type of wound: DTI Size: 2.0cm x 3.0cm x <0.1cm Tunneling: none Undermining: none Sinus Tract: none Presence of Exudate: none Amount: None Color: Purple, dark red Odor: None Periwound Skin Appearance: Normal Wound edges: closed Pain (associated with wound): none at time of assessment How does patient state this happened? pt unsure how this happened he stated he just has old feet Bilateral heels are red, blanchable and mushy at time of assessment. No open areas noted at time of assessment. Surface the patient is resting on: Isoflex SKIN PREVENTION RECOMMENDATION: 1. Pressure redistribution support surface as appropriate 2. Elevate heels 3. Remove boots/TEDS every shift and reapply 4. Head of bed 30 degrees as tolerated 5. Assess nutrition and hydration 6. Manage moisture 7. Avoid the use of containment devices while in bed 8. Use absorptive products on surfaces limit layers of linens on bed 9. Turn and reposition every 1-2 hours in bed and every 1 hour in chair as tolerated 10. Weight shifts every 15 minutes while up in chair 11. Offloading with pillows or device to keep heels elevated off bed 12. Monitor skin at least every shift 13. Inspect under medical devices twice a day WOUND TREATMENT RECOMMENDATIONS: Stage 2 guidelines coccyx: Cleanse coccyx with nss and apply sureprep around the wound hydrogel to wound and cover with optifoam gentle daily and prn for soiling. DTI guidelines to right great toe: Apply sureprep and cover with bandaid every day and prn for soiling. Wheelchair cushion when oob. Heel raiser pro boots while in bed to bilateral feet.
--- NOTE | 2019-02-26 10:53 | NUR ---
Dr. Barker notified of wound care recommendations.
[2019-02-26 12:05] LABS: URINE CREATININE RANDOM 48.9 mg/dL
--- NOTE | 2019-02-26 12:14 | NUR ---
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 Patient is ok to return when medically stable for discharge.
--- NOTE | 2019-02-26 13:00 | NUR ---
PT REFUSING US OF KIDNEYS
--- NOTE | 2019-02-26 13:01 | NUR ---
ULTRAM GIVEN FOR GENERALIZED ACHES, PT MOANS WITH EVERY TOUCH AND TURN
--- NOTE | 2019-02-26 14:40 | NUR ---
RESIDENT NOTIFIED THAT PT IS REFUSING, PILLS, XRAYS AND IS ASKING "JUST LET ME " DR OROPEZA IN TO TALK WITH HIM, CODE STATUS CHANGED TO DNRCCA NO INTUBATION, WITH A PALLIATIVE CARE CONSULT
--- NOTE | 2019-02-26 15:22 | NUR ---
Faxed palliative care referral to [facility].
--- NOTE | 2019-02-26 16:17 | NUR ---
PT CURRENTLY REFUSING Q15 MINS BP
--- NOTE | 2019-02-26 16:32 | NUR ---
PT REFUSES VITALS AND ASSESSMENT
--- NOTE | 2019-02-26 18:30 | NUR ---
REMAINS ON LEVAPHED AT 3 MCG, SISTER TALKED PT INTO EATING A FEW BITES OF PUDDING, PT CONTINUES TO REFUES Q15M PRESSURES, FAMILY UPDATED ON CHANGE IN CODE STATUS TO DNRCCA, NO INTUBATION, ALL IV SITES REMAIN PATENT AND ASYMPT
--- NOTE | 2019-02-26 19:55 | NUR ---
PT. SLEEPING, AROUSES EASILY. HEP LOCKS IN RH AND RA ASYMPT AND HEP LOCKS IN LW AND CYNTHIA ALSO ASYMPT. IVF AND LEVOPHED CONTINUE ORDERED, LEVOPHED AT 3MICS. LUNGS DIMINISHED BILAT, PULSE OX 97% ON 4L NC. ABDOMEN SOFT, NONDISTENDED AND NORMO. BLE EDEMA NOTED ALONG WITH RH. SILVESTRE CATHETER DRAINING A CLOUDY YELLOW URINE. LEFT ORBITAL EDEMA NOTED. PT. REFUSING HEEL BOOTS AT THIS TIME, HEELS ELEV ON PILLOW. PT. COVERED WITH WARM BLANKETS HIS ONLY COMPLAINT IS BEING COLD. RECTAL TEMP 96.1. WILL CONTINUE TO MONITOR. MARK OLIVA RN
[2019-02-27] VITALS (55 sets, daily range): BP systolic 78–114; BP diastolic 38–62
[2019-02-27 06:01] LABS: ALBUMIN 1.5 gm/dl (3.1-4.5); BUN 19 mg/dl (7-24); CHLORIDE 112 mmol/L (98-107); CREATININE 0.94 mg/dL (0.70-1.30); PHOSPHOROUS 3.4 mg/dL (2.5-4.9); POTASSIUM 3.6 mmol/L (3.5-5.1); SGOT/AST 26 IU/L (3-35); SGPT/ALT 32 U/L (12-78); SODIUM 141 mmol/L (136-145); TOTAL PROTEIN 5.7 gm/dL (6.4-8.2)
[2019-02-27 06:02] LABS: ALKALINE PHOSPHATASE 91 U/L (45-117)
[2019-02-27 06:29] LABS: HEMATOCRIT 35.3 % (42.0-52.0); HEMOGLOBIN 11.1 g/dl (14.0-18.0); MEAN CELL VOLUME 90.3 fl (80.0-94.0); MEAN CORPUSCULAR HGB 28.4 pg (27.0-31.0); MEAN CORPUSCULAR HGB CONC 31.4 g/dl (33.0-37.0); MEAN PLATELET VOLUME 9.9 fl (9.6-12.3); PLATELET COUNT AUTOMATED 166 10*3/uL (130-400); RED BLOOD COUNT 3.91 10*6/uL (4.50-5.90); RED CELL DISTRI WIDTH 16.5 % (0-14.5); WHITE BLOOD COUNT 22.1 10*3/uL (4.8-10.8)
[2019-02-27 07:25] LABS: BURR CELLS MANY; PLATELET SUFFICIENCY NORMAL (NORMAL); TOTAL CELLS COUNTED 100 #CELLS
--- NOTE | 2019-02-27 07:30 | NUR ---
TURNED AND REPOSITIONED IN BED. ALERT AND ORIENTED. RECTAL TEMP 96. LUNGS DIMINISHED BILATERALLY. HANDS AND ARMS PUFFY BILATERALLY. PULSE OX 98% ON 4L NASAL CANNULA. LEVOPHED GTT REMAINS AT 4MIC'S (30CC/HR) AND NS INFUSING AT 100CC/HR. SILVESTRE DRAINING YELLOW URINE WITH SEDIMENT. VERBALIZES THAT "I AM READY TO ." TOLD PATIENT THAT PALLIATIVE CARE WILL BE COMING IN TODAY
--- NOTE | 2019-02-27 08:30 | NUR ---
Studio Technician Video Operator in to see patient. Palliative care to see patient today. Discharge plan undecided at this time.
--- NOTE | 2019-02-27 10:29 | NUR ---
DR. OROPEZA HERE TO SEE PATIENT
--- NOTE | 2019-02-27 11:56 | NUR ---
OFELIA CHAPIN FROM PALLIATIVE CARE HERE TO SEE PATIENT WITH SISTER ALVAREZ AT BEDSIDE
--- NOTE | 2019-02-27 12:15 | NUR ---
PATIENT'S DECISION IS TO BE MADE DNR-CC. ORDERS RECEIVED. PATIENT BANDED. LEVOPHED GTT TITRATED DOWN TO 2.5 MAITE'S
--- NOTE | 2019-02-27 12:21 | NUR ---
Spoke to Hadley at [facility] at [phone] regarding hospice referral and the sister is currently here at his bedside. Faxed demos and H&P to Hadley at [phone]. Spoke to sister at the bedside and informed her and the patient a [facility] nurse would be here at the hospital within the hour. She verbalized an understanding and wanted to run home to make a few phone calls and then she will return. Susy Walsh and nurse notified.
--- NOTE | 2019-02-27 13:15 | NUR ---
LEVOPHED GTT TITRATED DOWN TO 2 MAITE'S
--- NOTE | 2019-02-27 13:37 | NUR ---
DR. OROPEZA MADE AWARE THAT PATIENT WANTS TO BE HOSPICE INPATIENT. NEW ORDERS RECEIVED
--- NOTE | 2019-02-27 13:44 | NUR ---
[facility]
[2019-03-05] MEDS ORDERED: Haldol Concen2 MG/ML PO (14:26)
[2019-03-05] MEDS ORDERED: MORPHINE S100 MG/5 M SL (14:26)
[2019-03-05] MEDS ORDERED: LORAZEPAM0.5 MG PO (14:26)
[2019-03-05] MEDS ORDERED: ATROPINE SULFATE2 M2 SL (14:26)
[2019-03-05] MEDS ORDERED: BISCOLAX10 M1 R (14:26)
[2019-03-05] MEDS ORDERED: FEVER REDUCER650 MG R (14:26)
== END 2019-02-27 13:45 | disposition hospice, home (50) | DRG 871 ==
LOC: ED 22:29 → ICCU 02-25 01:11 → EDHOLD 02-25 01:11 → 5E 02-25 01:11 → ICCU 02-25 01:59
PROVIDERS: Emergency Medicine Emergency Medical Services; Internal Medicine; Internal Medicine Nephrology; ADMIT Internal Medicine
DX: A41.50 Gram-negative sepsis, unspecified (principal); R65.21 Severe sepsis with septic shock; E43 Unspecified severe protein-calorie malnutrition; N17.0 Acute kidney failure with tubular necrosis; G93.41 Metabolic encephalopathy; N39.0 Urinary tract infection, site not specified; E87.1 Hypo-osmolality and hyponatremia; J98.11 Atelectasis; D64.9 Anemia, unspecified; H05.242 Constant exophthalmos, left eye; L89.152 Pressure ulcer of sacral region, stage 2; R74.0 Nonspecific elevation of levels of transaminase and lactic acid dehydrogenase [LDH]; B96.4 Proteus (mirabilis) (morganii) as the cause of diseases classified elsewhere; N40.1 Benign prostatic hyperplasia with lower urinary tract symptoms; Z66 Do not resuscitate; Z51.5 Encounter for palliative care; Z53.29 Procedure and treatment not carried out because of patient's decision for other reasons; R33.8 Other retention of urine; R29.6 Repeated falls; I87.2 Venous insufficiency (chronic) (peripheral); E83.39 Other disorders of phosphorus metabolism; E83.42 Hypomagnesemia; E87.6 Hypokalemia; Z86.718 Personal history of other venous thrombosis and embolism; Z80.0 Family history of malignant neoplasm of digestive organs; Z83.49 Family history of other endocrine, nutritional and metabolic diseases; Z79.899 Other long term (current) drug therapy; Z79.01 Long term (current) use of anticoagulants; Z91.81 History of falling; Z87.440 Personal history of urinary (tract) infections; Z68.23 Body mass index [BMI] 23.0-23.9, adult

== ENCOUNTER 2019-03-31 04:37 | Emergency (ER) | payer MEDICARE, MEDICAID ==
[~2019-03-31] VITALS: Ht 182.8 cm; Wt 77.1 kg
[~2019-03-31 04:37] MED LIST changes: +ATROPINE SULFATE2 M2 SL; +BISCOLAX10 M1 R; +DULCOLAX10 M1 R; +FEVER REDUCER650 MG R; +FLEET ENEMA 13133 ML R; +Haldol Concen2 MG/ML PO; +LORAZEPAM0.5 MG PO; +MILK OF MA400 MG/51 PO; +MORPHINE S100 MG/5 M SL; +NON-ASPIRIN325 MG PO
== END 2019-03-31 07:00 | disposition hospice, home (50) ==
LOC: ED 04:37
DX: T83.038A Leakage of other urinary catheter, initial encounter (principal); Z79.899 Other long term (current) drug therapy; Y84.6 Urinary catheterization as the cause of abnormal reaction of the patient, or of later complication, without mention of misadventure at the time of the procedure; Y92.89 Other specified places as the place of occurrence of the external cause

== ENCOUNTER 2020-07-03 11:30 | Inpatient (IN) | payer MEDICARE, MEDICAID ==
[~2020-07-03] VITALS: Ht 182.8 cm; Wt 78.4 kg
[2020-07-03 11:50] VITALS: BP 108/67
[2020-07-03 12:22] LABS: HEMATOCRIT 43.9 % (42.0-52.0); MEAN CORPUSCULAR HGB 28.5 pg (27.0-31.0); MEAN CORPUSCULAR HGB CONC 31.7 g/dl (33.0-37.0); MEAN PLATELET VOLUME 8.7 fl (9.6-12.3); PLATELET COUNT AUTOMATED 463 10*3/uL (130-400); RED BLOOD COUNT 4.88 10*6/uL (4.50-5.90); RED CELL DISTRI WIDTH 14.3 % (0-14.5)
[2020-07-03 12:40] LABS: TOTAL CELLS COUNTED 100 #CELLS
[2020-07-03 12:41] LABS: ACT PARTIAL THROMBO TIME 26.5 SECONDS (20.0-32.1); BURR CELLS FEW; INTERNATIONAL NORM RATIO 1.2 (2.0-3.5); PLATELET SUFFICIENCY HIGH (NORMAL)
[2020-07-03 12:45] LABS: ALBUMIN 2.2 gm/dl (3.1-4.5); ALKALINE PHOSPHATASE 126 U/L (45-117); BUN 40 mg/dl (7-24); CHLORIDE 107 mmol/L (98-107); CREATININE 1.48 mg/dL (0.70-1.30); LIPASE 136 U/L (73-393); POTASSIUM 4.3 mmol/L (3.5-5.1); SGOT/AST 22 IU/L (3-35); SGPT/ALT 24 U/L (12-78); SODIUM 139 mmol/L (136-145); TOTAL PROTEIN 8.4 gm/dL (6.4-8.2)
[2020-07-03 12:56] LABS: TROPONIN I < 0.015 ng/ml (<0.045)
[2020-07-03 13:41] VITALS: BP 136/63
[2020-07-03 16:00] VITALS: BP 124/65
--- NOTE | 2020-07-03 16:05 | NUR ---
PER COOPERER DR NIEVES ALREADY AWARE OF CONSULT
--- NOTE | 2020-07-03 16:05 | NUR ---
A 89 YEAR OLD MALE PATIENT, admitted to 5E, under the services of LEONID Mcelroy MD with a diagnosis of ACUTE CHOLECYSITIS Chief complaint is ABDOMINAL PAIN FOR APPROXIMATELY 1 WEEK. Patient arrived via CART WITH RN from ER. Monitor applied. Initial assessment completed. Vital signs taken and recorded. LEONID MCELROY MD notified of admission to the unit. Orders received. See assessment for past medical history, medications and allergies. Patient and/or family oriented to unit. [facility] 508-1 visitation policy reviewed. Clothing/patient valuable form completed. CHAITANYA SIDHU
[2020-07-03] MEDS ORDERED: GAS-X125 MG PO (17:20)
[2020-07-03] MEDS ORDERED: RIVASTIGMINE TAR3 M1 PO (17:20)
[2020-07-03] MEDS ORDERED: MIRALAX POWDER17 G1 PO (17:20)
[2020-07-03] MEDS ORDERED: REMERON15 M2 PO (17:21)
[2020-07-03] MEDS ORDERED: SENNA8.6 MG PO (17:21)
[2020-07-03] MEDS ORDERED: PRILOSEC20 M1 PO (17:22)
[2020-07-03] MEDS ORDERED: SYNTHROID25 MCG PO (17:22)
[2020-07-03] MEDS ORDERED: FLOMAX0.4 MG PO (17:23)
[2020-07-03] MEDS ORDERED: ONDANSETRON8 MG PO (17:23)
[2020-07-03] MEDS ORDERED: MILK OF MA400 MG/5 M PO (17:24)
[2020-07-03] MEDS ORDERED: FLEET ENEMA EX230 M1 R (17:25)
[2020-07-03] MEDS ORDERED: ATROPINE SULFATE2 M2 SL (17:26)
[2020-07-03] MEDS ORDERED: FEVER REDUCER650 MG R (17:27)
[2020-07-03] MEDS ORDERED: BISA-LAX5 MG PO (17:27)
[2020-07-03 18:00] VITALS: BP 124/65
--- NOTE | 2020-07-03 19:20 | NUR ---
REPORT RECEIVED. PT LYING IN BED AT THIS TIME. RESPIRATIONS EASY AND UNLABORED. O2 INTACT. CALL LIGHT IN REACH.
[2020-07-03 20:00] VITALS: BP 122/67
--- NOTE | 2020-07-03 21:30 | NUR ---
PT ASLEEP AT THIS TIME. O2 INTACT. IV FLUIDS INFUSING WITHOUT DIFFICULTY. CALL LIGHT IN REACH
--- NOTE | 2020-07-03 21:40 | NUR ---
IF PT IS FOR SURGERY TOMORROW, CALL ALVAREZ'S CELL PHONE AT [phone]
--- NOTE | 2020-07-03 23:00 | NUR ---
PT SLEEPING AT THIS TIME. O2 INTACT. IV FLUIDS INFUSING WITHOUT DIFFICULTY. CALL LIGHT IN REACH
[2020-07-04] VITALS: BP 118/61
--- NOTE | 2020-07-04 01:00 | NUR ---
SLEEPING AT THIS TIME. RESPS EASY. CALL LIGHT IN REACH
--- NOTE | 2020-07-04 04:00 | NUR ---
PT MABELEP[ AT THIS TIME. IV FLUIDS INFUSING WITHOUT DIFFICULTY. CALL LIGHT IN REACH
--- NOTE | 2020-07-04 05:00 | NUR ---
IN TO SEE PT. PT ASLEEP AT THIS TIME. RESPIRATIONS EASY AND UNLABORED. CALL LIGHT IN REACH
[2020-07-04 06:40] LABS: ALKALINE PHOSPHATASE 114 U/L (45-117); BUN 34 mg/dl (7-24); CHLORIDE 111 mmol/L (98-107); CREATININE 1.23 mg/dL (0.70-1.30); SGOT/AST 19 IU/L (3-35); SGPT/ALT 24 U/L (12-78); SODIUM 145 mmol/L (136-145); TOTAL PROTEIN 7.8 gm/dL (6.4-8.2)
[2020-07-04 06:46] LABS: HEMATOCRIT 43.3 % (42.0-52.0); MEAN CELL VOLUME 92.1 fl (80.0-94.0); MEAN CORPUSCULAR HGB 27.9 pg (27.0-31.0); MEAN CORPUSCULAR HGB CONC 30.3 g/dl (33.0-37.0); MEAN PLATELET VOLUME 8.9 fl (9.6-12.3); PLATELET COUNT AUTOMATED 457 10*3/uL (130-400); RED CELL DISTRI WIDTH 14.4 % (0-14.5)
[2020-07-04 07:20] LABS: PLATELET SUFFICIENCY HIGH (NORMAL); TOTAL CELLS COUNTED 100 #CELLS
--- NOTE | 2020-07-04 07:30 | NUR ---
REPORT RECEIVED. PATIENT RESTING IN BED. NO COMPLAINTS. DENIES ANY NEEDS AT THIS TIME. CALL LIGHT IN REACH.
--- NOTE | 2020-07-04 07:51 | NUR ---
Nursing screen received and chart reviewed. Patient admitted from [facility] nursing facility for acute cholecystitis. If patient has a decline in ADLs, transfers, or functional mobility, please send OT orders. Thank you. Edda Marion, OTR/L
[2020-07-04 08:00] VITALS: BP 117/64
--- NOTE | 2020-07-04 08:04 | NUR ---
PHYSICAL THERAPY PT sarah recieved. Patient admitted for cholecystitis, please consult PT if patient has decline in functional status below baseline, thank you. Paras Tineo SPT Elizabeth Choudhary PT
--- NOTE | 2020-07-04 09:00 | NUR ---
CM in to see patient. He is a LTC resident at [facility] and plans to return there upon discharge. maintenance planner following.
--- NOTE | 2020-07-04 09:33 | NUR ---
OFFICE NOTIFIED OF NEW CONSULT.
--- NOTE | 2020-07-04 10:35 | NUR ---
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. Faxed updated clinicals for review. Patient will require a covid - 19 test result prior to returning.
[2020-07-04 11:09] LABS: BILIRUBIN NEGATIVE; BLOOD 2+ (NEGATIVE); CLARITY CLOUDY (CLEAR); COLOR YELLOW (YELLOW); GLUCOSE NEGATIVE; KETONE TRACE; PH 7.5 (4.5-8.0); SPECIFIC GRAVITY > 1.030 (1.001-1.030)
[2020-07-04 11:10] LABS: LEUKO ESTERASE 2+ (NEGATIVE); NITRITE POSITIVE (NEGATIVE)
[2020-07-04 11:20] LABS: BACTERIA 3+; RBC 31-40 rbc/hpf (0-2); WBC TNTC wbc/hpf (0-5)
[2020-07-04 12:00] VITALS: BP 120/68
--- NOTE | 2020-07-04 12:00 | NUR ---
PATIENT INCONTINENT OF URINE COMPLETE BED CHANGE AND PATIENT CLEANED UP AT THIS TIME.
[2020-07-04 16:00] VITALS: BP 122/75
--- NOTE | 2020-07-04 19:00 | NUR ---
REPORT GIVEN TO ONCOMING NURSE. PATIENT STABLE. VSS STABLE. CALL LIGHT IN REACH.
--- NOTE | 2020-07-04 19:20 | NUR ---
REPORT RECEIVED. PT SLEEPING AT THIS TIME. IV FLUIDS INFUSING WITHOUT DIFFICULTY. CALL LIGHT IN REACH
[2020-07-04 20:00] VITALS: BP 114/65
[2020-07-05] VITALS: BP 113/54
[2020-07-05 08:00] VITALS: BP 118/57
--- NOTE | 2020-07-05 09:03 | NUR ---
IN TO SEE PATIENT REGARDING CONSULT.
--- NOTE | 2020-07-05 11:00 | NUR ---
PATIENT SLEEPING. AROUSES EASILY. NO DISTRESS NOTED. MOUTH CARE PROVIDED AT THIS TIME. WILL CONTINUE TO MONITOR. IVF INFUSING PER ORDER. CALL LIGHT WITHIN REACH. VSS.
[2020-07-05 12:00] VITALS: BP 127/75
[2020-07-05 16:00] VITALS: BP 129/62
--- NOTE | 2020-07-05 18:14 | NUR ---
IN TO SEE PATIENT REGARDING PLAN OF CARE.
--- NOTE | 2020-07-05 19:00 | NUR ---
REPORT OBTAINED FROM PREVIOUS RN.
[2020-07-05 20:00] VITALS: BP 124/69
--- NOTE | 2020-07-05 20:05 | NUR ---
ASSUMED CARE OF PATIENT. PATIENT IS ALERT TO SELF RESTING IN BED WITH EASY AND REGULAR RESPERS ON 2L O2 VIA NC. ASSESSMENT IS COMPLETE WITH NO C/O OR S/S OF DISTRESS NOTED AT THIS TIME. BED IS LOW, LOCKED, ALARMED, AND CALL LIGHT IS WITHIN REACH. IV FLUIDS INFUSING PER ORDER. WHITEBOARD UPDATED. WILL CONTINUE TO MONITOR, SEE INTERVENTIONS.
--- NOTE | 2020-07-05 21:38 | NUR ---
PATIENT APPEARS TO BE SLEEPING. RESPERS EASY AND REGULAR. BED IS LOW, LOCKED, ALARMED, AND CALL LIGHT IS WITHIN REACH. WILL CONTINUE TO MONITOR.
--- NOTE | 2020-07-05 23:00 | NUR ---
CONTACTED DR. CASSIDY IN REGARDS TO PAIN MANAGEMENT, ALSO UPDATED ON SURGICAL DECISION. 0.25 DILAUDID ORDERED X1.
[2020-07-06] VITALS: BP 108/57
[2020-07-06 06:07] LABS: MEAN CELL VOLUME 92.7 fl (80.0-94.0); MEAN CORPUSCULAR HGB CONC 30.2 g/dl (33.0-37.0); MEAN PLATELET VOLUME 9.2 fl (9.6-12.3); PLATELET COUNT AUTOMATED 455 10*3/uL (130-400); RED BLOOD COUNT 4.53 10*6/uL (4.50-5.90); RED CELL DISTRI WIDTH 14.8 % (0-14.5)
[2020-07-06 06:38] LABS: ALBUMIN 1.8 gm/dl (3.1-4.5); BUN 32 mg/dl (7-24); CHLORIDE 113 mmol/L (98-107); CREATININE 0.88 mg/dL (0.70-1.30); SGOT/AST 55 IU/L (3-35); SGPT/ALT 38 U/L (12-78); SODIUM 145 mmol/L (136-145)
[2020-07-06 06:40] LABS: TOTAL PROTEIN 7.3 gm/dL (6.4-8.2)
[2020-07-06 07:00] LABS: ALKALINE PHOSPHATASE 116 U/L (45-117)
[2020-07-06 07:21] LABS: BASOPHILS 1 % (0-1); TOTAL CELLS COUNTED 100 #CELLS
[2020-07-06 07:22] LABS: BURR CELLS FEW; PLATELET SUFFICIENCY HIGH (NORMAL)
[2020-07-06 08:00] VITALS: BP 105/58
--- NOTE | 2020-07-06 08:00 | NUR ---
CALLED IN AND UPDATED ON PATIENT'S LABS.
--- NOTE | 2020-07-06 08:15 | NUR ---
PATIENT SLEEPING. AROUSES EASILY. 02 IN USE VIA 2LNC. PT MUCH MORE ALERT THIS AM. PT DENIES ANY ABD PAIN/DISCOMFORT AT THIS TIME. WILL CONTINUE TO MONITOR. CALL LIGHT WITHIN REACH. BED ALARM MAINTAINED FOR SAFETY.
[2020-07-06 12:00] VITALS: BP 109/61
--- NOTE | 2020-07-06 14:10 | NUR ---
IN TO SEE PATIENT.
[2020-07-06 16:00] VITALS: BP 102/45
[2020-07-06 20:00] VITALS: BP 96/44
[2020-07-07] VITALS: BP 100/54
--- NOTE | 2020-07-07 | NUR ---
SLEEPING, RESPERS EASY AND REGULAR. CALL LIGHT IS WITHIN REACH.
--- NOTE | 2020-07-07 06:05 | NUR ---
CHART CHECK COMPLETE.
[2020-07-07 08:00] VITALS: BP 96/51
--- NOTE | 2020-07-07 08:46 | NUR ---
PT RESTING IN BED. NO DISTRESS NOTED. WILL MONITOR
--- NOTE | 2020-07-07 09:00 | NUR ---
CM in to see patient. No new needs or request at this time. He is a LTC resident at [facility] and can return when medically stable. capacity planner/delinquency prevention social worker following.
[2020-07-07 12:00] VITALS: BP 102/55
--- NOTE | 2020-07-07 15:30 | NUR ---
PT RESTING IN BED. RESPS EASY AND NON LABORED. NO S/S OF DISTRESS NOTED. VSS. WHITE BOARD UPDATED. WILL CONTINUE TO MONITOR. CALL LIGHT WITHIN REACH. BED ALARM ON.
[2020-07-07 16:00] VITALS: BP 101/50
--- NOTE | 2020-07-07 16:00 | NUR ---
PER DR OROPEZA DECREASE IVF TO 60ML/H
[2020-07-07 20:00] VITALS: BP 106/61
--- NOTE | 2020-07-07 20:06 | NUR ---
24 HR chart check completed.
--- NOTE | 2020-07-07 21:00 | NUR ---
SLEEPING. NO DISTRESS NOTED. RESPIRATIONS EASY. LUNGS DIMINISHED. PULSE OX 93% 2L. ABD SOFT WITH HYPO BOWEL SOUNDS, TENDER TO PALPATION. TRACE BLE EDEMA WITH FOOT DROP NOTED, HEEL PROTECTORS PLACED. IV FLUIDS INFUSING PER ORDER. CALL LIGHT WITHIN REACH. NO VOICED COMPLAINTS. BED ALARM MAINTAINED
[2020-07-08] VITALS: BP 106/50
--- NOTE | 2020-07-08 | NUR ---
SLEEPING. NO DISTRESS NOTED. RESPIRATIONS EASY. VSS. IV FLUIDS MAINTAINED. CALL LIGHT WITHIN REACH. BED ALARM IN PLACE.
--- NOTE | 2020-07-08 06:00 | NUR ---
slept throughout night with no distress noted. respirations easy. o2 in use. refused lab work this am stating "i'm an old man, leave me alone." attempted to explain to patient importance of labs but patient continues to decline. iv fluids maintained. call light within reach.
--- NOTE | 2020-07-08 07:30 | NUR ---
PT RESTING IN BED. RESPS EASY AND NON LABORED. NO S/S OF DISTRESS NOTED. VSS. WHITE BOARD UPDATED. POC DISCUSSED W PT. DENIES PAIN AT THIS TIME. IVF INFUSING W/O INCIDENT. 2L NC INTACT. WILL CONTINUE TO MONITOR. CALL LIGHT WITHIN REACH. BED ALARM ON.
[2020-07-08 08:00] VITALS: BP 110/55
--- NOTE | 2020-07-08 08:30 | NUR ---
CM in to see patient. No new needs or request at this time. He is a LTC resident at [facility] and can return when medically stable. COVID negative. community development planner/social security specialist following.
[2020-07-08 12:00] VITALS: BP 110/53
--- NOTE | 2020-07-08 12:22 | NUR ---
DR NIEVES INTO SEE PT.
[2020-07-08 16:00] VITALS: BP 134/55
--- NOTE | 2020-07-08 16:52 | NUR ---
PT RESTING IN BED. RESPS EASY AND NON LABORED. CALL LIGHT WITHIN REACH. BED ALARM ON.
--- NOTE | 2020-07-08 19:46 | NUR ---
24 HR chart check completed.
[2020-07-08 20:00] VITALS: BP 100/51
--- NOTE | 2020-07-08 21:00 | NUR ---
AWAKE. NO ACUTE DISTRESS NOTED. RESPIRATIONS EASY. LUNGS DIMINISHED. PULSE OX 95% 2L. ABD SOFT WITH NORMO BOWEL SOUNDS, C/O TENDERNESS WITH PALPATION. TRACE BLE EDEMA WITH HEEL PROTECTORS IN PLACE, FOOT DROP. IV FLUIDS INFUSING PER ORDER. CALL LIGHT WITHIN REACH. NO VOICED COMPLAINTS. BED ALARM MAINTAINED
[2020-07-09] VITALS: BP 106/62
--- NOTE | 2020-07-09 | NUR ---
SLEEPING. NO DISTRESS NOTED. RESPIRATIONS EASY. VSS. CALL LIGHT WITHIN REACH. NO VOICED COMPLAINTS. BED ALARM MAINTAINED FOR SAFETY
--- NOTE | 2020-07-09 06:00 | NUR ---
SLEPT THROUGHOUT NIGHT WITH NO DISTRESS NOTED. RESPIRATIONS EASY. IV FLUIDS MAINTAINED. CALL LIGHT WITHIN REACH. NO VOICED COMPLAINTS THIS SHIFT. BED ALARM MAINTAINED FOR SAFETY
--- NOTE | 2020-07-09 06:05 | NUR ---
REFUSED AM LABS STATING "I'M TOO OLD." ATTEMPTED TO EXPLAIN IMPORTANCE OF MONITORING TO PATIENT BUT PATIENT CONTINUES TO DECLINE. PATIENT GOES ON TO STATE "JUST SEND ME BACK TO [facility]."
--- NOTE | 2020-07-09 07:27 | NUR ---
ATTEMPTED TO GET PATIENT TO GO FOR CXR ORDERED BUT PATIENT REFUSED. SAID "SINCE THEY CAN'T DO SURGERY THERE IS NO REASON TO HAVE IT DONE"..PATIENT ALSO SAID "JUST SEND ME BACK"
[2020-07-09 07:53] VITALS: BP 108/50
--- NOTE | 2020-07-09 08:07 | NUR ---
PATIENT IV TUBING GOT CAUGHT AND PULLED IV OUT AFTER NURSE LEFT ROOM. PATIENT REFUSED TO ALLOW ANOTHER IV TO BE PLACED. BRIEF CHANGED AND PREVENTIVE CREAM APPLIED. HEEL RAISERS ON - YELLOW SLIUPPEERS, BAND, BED IN LOW POSITION, BED ALARM ON
--- NOTE | 2020-07-09 08:30 | NUR ---
CM in to see patient. No new needs or request at this time. He wants to return to [facility]. Awaiting Dr. Camarillo to round. When medically stable he will be discharged to [facility] where he is a LTC resident. load planner/social worker palliative care following.
[2020-07-09 12:00] VITALS: BP 136/75
--- NOTE | 2020-07-09 14:08 | NUR ---
Patient resting. Responding to scheduled medications with fewer complaints of pain and anxiety.
--- NOTE | 2020-07-09 14:48 | NUR ---
MANAGED CARE DIRECTOR FAXED UPDATES TO [facility], [place]. [facility] FAXED SCRIPT TO [facility] [place].
[2020-07-09] MEDS ORDERED: MERREM IV1 GM IV (15:16)
--- NOTE | 2020-07-09 16:02 | NUR ---
SURGERY WAS UNSUCCESSFUL WITH PLACING A MIDLINE. DR. KHANH MORSE. STATED DR. NIEVES NEEDED CALLED IN REGARDS TO [facility]. PO CIPRO AND PO FLAGYL WERE ORDERED.
[2020-07-09] MEDS ORDERED: FLAGYL500 MG PO (16:05)
[2020-07-09] MEDS ORDERED: CIPRO500 MG PO (16:05)
--- NOTE | 2020-07-09 16:30 | NUR ---
CALLED NURSE TO NURSE TO [place] AT [facility]. NOTIFIED HIM OF ANTIBIOTIC CHANGES AND NOTIFIED HIM THAT I WOULD CALL BACK WHEN TRANSPORTATION WAS SET UP.
--- NOTE | 2020-07-09 16:36 | NUR ---
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
--- NOTE | 2020-07-09 16:49 | NUR ---
DISCHARGE WOUND PHOTO TAKEN.
--- NOTE | 2020-07-09 17:05 | NUR ---
Discharge instructions reviewed with patient/family. Patient receptive and verbalizes understanding. Follow-up care arranged. Written instructions given to patient/family AND COPY PLACED IN AMBULANCE PACKET. PT HAD NO IV, BUT WAS TAKEN OFF FROM THE MONITOR. PT HAD NO QUESTIONS AT THIS TIME. MANJINDER JOHNS
== END 2020-07-09 17:05 | disposition other institution (70) | DRG 871 ==
LOC: ED 11:30 → 5E 14:28 → EDHOLD 14:28 → 5E 15:21
PROVIDERS: Internal Medicine; Physician Assistant; ADMIT Internal Medicine; ATTEND Internal Medicine
DX: A41.9 Sepsis, unspecified organism (principal); E43 Unspecified severe protein-calorie malnutrition; N17.0 Acute kidney failure with tubular necrosis; E87.0 Hyperosmolality and hypernatremia; K80.01 Calculus of gallbladder with acute cholecystitis with obstruction; H05.242 Constant exophthalmos, left eye; R73.9 Hyperglycemia, unspecified; Z66 Do not resuscitate; Z20.828 Contact with and (suspected) exposure to other viral communicable diseases; Z51.5 Encounter for palliative care; L89.159 Pressure ulcer of sacral region, unspecified stage; I45.10 Unspecified right bundle-branch block; E87.8 Other disorders of electrolyte and fluid balance, not elsewhere classified; E03.9 Hypothyroidism, unspecified; N40.1 Benign prostatic hyperplasia with lower urinary tract symptoms; R33.8 Other retention of urine; Z88.6 Allergy status to analgesic agent; Z86.718 Personal history of other venous thrombosis and embolism; Z80.0 Family history of malignant neoplasm of digestive organs; Z84.89 Family history of other specified conditions; Z78.9 Other specified health status; Z68.23 Body mass index [BMI] 23.0-23.9, adult; Z79.899 Other long term (current) drug therapy